=== PATIENT | male | born 1995 | race Caucasian/White ===

== ENCOUNTER 2023-04-13 14:24 | Emergency (ER) | payer OTHER ==
[2023-04-13 14:45] VITALS: BP 132/84; PULSE 98; RESP 18; TEMP 97.8; BMI 31.9
[2023-04-13] MEDS ORDERED: ACETAMINOPHEN 500 MG TABLET (FP) PO ONE (15:16)
[2023-04-13] MEDS ORDERED: KETOROLAC TROMETHAMINE 30 MG/1 ML VIAL IM ONE (15:16)
[2023-04-13] MEDS ORDERED: LIDOCAINE 5% TOPICAL PATCH TP ONE (15:16)
[2023-04-13] MEDS ORDERED: KETOROLAC TROMETHAMINE 30 MG/1 ML VIAL ONE (15:27)
[2023-04-13] MEDS ORDERED: LIDOCAINE 5% TOPICAL PATCH ONE (15:27)
[2023-04-13] MEDS ORDERED: ACETAMINOPHEN 500 MG TABLET (FP) ONE (15:27)
[2023-04-13] MEDS ORDERED: ALBUTEROL SO4 2.5/IPRATROPIUM 0.5 INH SOL 3 ML VIAL.NEB. NEB ONE ×2 (16:17→16:23)
[2023-04-13] MEDS ORDERED: LIDOCAINE PATCH REMOVAL MC SCH (22:00)
== END 2023-04-13 17:05 | disposition home or self-care (01) ==
LOC: FER 14:24
PROC: 3E0F7GC Introduction of Other Therapeutic Substance into Respiratory Tract, Via Natural or Artificial Opening (ICD-10-PCS; principal; 2023-04-13)
PROC: 3E033NZ Introduction of Analgesics, Hypnotics, Sedatives into Peripheral Vein, Percutaneous Approach (ICD-10-PCS; 2023-04-13)
DX: J20.9 Acute bronchitis, unspecified (principal)
CPT/HCPCS: 71046-TC-FY; 99284-25